=== PATIENT | male | born 1965 | race Caucasian/White ===

== ENCOUNTER 2016-12-29 10:49 | Emergency (ER) | payer OTHER ==
[~2016-12-29] VITALS: Ht 167.6 cm; Wt 76.2 kg
[2016-12-29 11:04] VITALS: BP 130/95
[2016-12-29] MEDS ORDERED: LOCOID 0.1% CRE15 GM TOP (12:06)
[2016-12-29] MEDS ORDERED: PREDNISONE 20 M20 M1 PO (12:06)
== END 2016-12-29 12:16 | disposition home or self-care (01) ==
LOC: ER 10:49
DX: R21 Rash and other nonspecific skin eruption (principal); F17.210 Nicotine dependence, cigarettes, uncomplicated; Z88.0 Allergy status to penicillin